=== PATIENT | male | born 1960 | race Caucasian/White ===

== ENCOUNTER 2025-01-09 10:36 | Emergency (ER) | payer BC, SELFPAY ==
[2025-01-09 10:52] VITALS: BP 153/99
[2025-01-09 11:13] LABS: Hematocrit 40.9 % (39.0-52.0); Hemoglobin 12.9 g/dL (13.0-18.0); Mean Corp Hgb Conc. 31.5 g/dL (33.0-37.0); Mean Corpuscular Volume 90.1 fL (80.0-94.0); Nucleated Red Blood Cells % 0 % (-); Platelet Count 285 10^3/uL (130-400); Red Cell Dist. Width 13.3 % (11.5-14.5)
[2025-01-09 11:33] LABS: ALT (SGPT) 39 U/L (0-50); AST (SGOT) 34 U/L (17-59); Albumin 4.4 g/dl (3.5-5.0); Alkaline Phosphatase 159 U/L (38-126); Blood Urea Nitrogen 39 mg/dl (9-20); Calcium 9.5 mg/dl (8.4-10.2); Carbon Dioxide 24 mmol/L (22-30); Chloride 108 mmol/L (98-107); Glucose 121 mg/dl (70-99); Potassium 5.9 mmol/L (3.5-5.1); Sodium 138 mmol/L (135-145); Total Protein 8.1 g/dl (6.3-8.2); eGFR 38.91
[2025-01-09 13:03] VITALS: BMI 23.5
--- NOTE | 2025-01-09 13:04 | ED.GENMED ---
History of Present Illness
General
Chief Complaint: Abnormal Lab Value
Source: patient
Exam Limitations: none
Time Seen by Provider: 01/09/25 13:00
History of Present Illness
History of Present Illness:
64yoM with a history of hypertension and hyperlipidemia presenting for evaluation of an abnormal outpatient lab. Patient was sent for routine blood work yesterday. He was found to have a potassium of 6.6 and was told to go to the ED for
evaluation. Creatinine was 1.91. Patient has not had blood work since 2022 and his creatinine was 1.41 at that time. Patient is completely asymptomatic and states he feels great. He did have some great toe pain earlier this week and took 2 doses
of colchicine with resolution. He denies any vomiting, diarrhea, decreased urination, decreased PO intake. He takes lisinopril 40mg daily for his hypertension. Of note, patient drinks a quart of high pH smart water daily.
Past History
Past History
ED Past Medical History: HTN and Hypercholesterolemia
ED Past Surgical History: None
Social History
Tobacco: Non-smoker
Alcohol: None
Drug: None
Phy Exam
General Physical Exam
General Presentation: well appearing and no apparent distress
General Skin: warm and dry
General Habitus: normal
General Mental: alert
ENT Exam
ENT Exam: normocephalic
Cardiovascular Exam
Cardiovascular Exam: regular rate/rhythm, no edema and no murmur
Pulmonary Exam
Pulmonary Exam: lungs clear, no respiratory distress, no rales, no crackles, no rhonchi and no wheezing
Neurological Exam
Neurological Exam: alert
[place] Coma Scale
Eye Opening: Spontaneous
Verbal Response: Oriented
Motor Response: Obeys Commands
GCS Total Score: 15
Skin Exam
Skin Exam: normal color and warm/dry
Psychiatric Exam
Psychiatric Exam: normal mood/affect
Course
Orders/Labs/Results
Orders:
Orders
01/09/25 11:00
Complete Blood Count/With Diff Urgent
Comprehensive Metabolic Panel Urgent
01/09/25 11:23
Electrocardiogram (*1) Urgent
Reason for Study: Vertigo / Dizzy
EKG- Treatment ONCE
01/09/25 13:33
Urinalysis Reflex To Culture Urgent
Date Specimen was Collected: 01/09/25
Time Specimen was Collected: 13:30
Urine Microscopic Reflex Cult Urgent
01/09/25 13:39
Sodium Zirconium Cyclosilicate [Lokelma] 10 gram PO NOW STA
01/09/25 13:40
0.9% Sodium Chloride 1000 ml [Nss] 1,000 ml IV BOLUS
Abnormal Lab Results
01/09/25 01/09/25
11:00 13:33
RBC 4.54 L 10^6/uL
(4.70-6.10)
Hgb 12.9 L g/dL
(13.0-18.0)
MCHC 31.5 L g/dL
(33.0-37.0)
MPV 10.7 H fL
(7.4-10.4)
Absolute Lymphs (auto) 1.1 L 10^3/uL
(1.2-3.4)
Lymphocytes % 20.3 L %
(20.5-51.1)
Potassium 5.9 H mmol/L
(3.5-5.1)
Chloride 108 H mmol/L
(98-107)
BUN 39 H mg/dl
(9-20)
Creatinine 1.9 H mg/dL
(0.7-1.3)
Glucose 121 H mg/dl
(70-99)
Alkaline Phosphatase 159 H U/L
(38-126)
Ur Occult Blood Reflex 1+ A
(Negative)
Urine Albumin (Reflex) 3+ A
(Neg - Trace)
01/09/25 11:00
01/09/25 11:00
Vital Signs
Initial and Last Documented VS:
Initial Vital Signs
Temp Pulse Resp BP Pulse Ox
98.5 F 98 16 153/99 100
01/09/25 10:52 01/09/25 10:52 01/09/25 10:52 01/09/25 10:52 01/09/25 10:52
Last Documented Vital Signs
Temp Pulse Resp BP Pulse Ox
98.5 F 81 15 127/94 100
01/09/25 10:52 01/09/25 14:15 01/09/25 14:15 01/09/25 14:00 01/09/25 13:05
MDM/Problems Addressed
Differential Diagnosis Includes:
64yoM here for a potassium of 6.6 on routine labs yesterday. Currently asymptomatic. On lisinopril for HTN. Patient well appearing in no distress and exam is reassuring. Differential diagnosis includes: lab error, ZEHRA, medication side effect
Repeat blood work obtained in triage. Potassium is 5.9 today. Creatinine 1.9 (1.91 yesterday). EKG obtained and no peaked T waves noted. I discussed case with health professional reserve operator, Dr. Flores, who recommends giving Lokelma x 3 days and stopping
lisinopril. Patient should have repeat blood work on Sunday and have close PCP f/u. Patient in agreement with plan and he is eager to be discharged. He was given 1L NS during ED stay. ED return precautions reviewed and he was discharged in stable
condition.
*Pulse Oximetry
SaO2: 100
Oxygen Mode of Delivery: Room air
Patient hypoxic: no
*EKG
Interpreted by ED Provider?: Yes
EKG Intrepretation Date: 01/09/25
Heart Rate: 96
Rate: normal
Rhythm: sinus
[place]: normal axis
Interval: normal interval
QRS Pattern: normal QRS
Ischemia: no ischemia
*Critical Care Note
Total Time (30-74mins, 75-104mins- exclusive of procedures): Not Applicable
ED Attending Note
-
Portions of this chart may have been created with voice recognition software.� Occasional wrong word or��sound alike� substitutions may have occurred due to the inherent limitations of voice recognition software.
Discharge Plan
Departure
Patient Disposition: Home (Routine Discharge)
Date of Disposition: 01/09/25
Time of Disposition: 14:20
Patient with high blood pressure during this ER visit?: No
Discharge Problem:
Hyperkalemia
Instructions: Hyperkalemia (DC)
Prescriptions:
New
sodium zirconium cyclosilicate 10 gram powder in packet
10 g PO DAILY 2 Days Qty: 2 0RF
No Action
atorvastatin 20 MG tablet
20 mg PO QPM
amlodipine 10 MG tablet
10 mg PO DAILY
lisinopril 40 MG tablet
40 mg PO DAILY
Referrals:
Pili Connolly CRNP [Family Provider, Family Practice]
Activity Restrictions/Additional Instructions:
Stop taking lisinopril. Take Lokelma as prescribed. You will need 1 dose on Sunday and 1 dose on Sunday. You should have repeat blood work done on Sunday to monitor your potassium levels.
Please follow-up with your family doctor. Return to the ER with any new or worsening symptoms.
Interventions
Interventions:
*Risk Screen - Suicide Last Done: 01/09/25 10:53
*General Assessment Last Done: 01/09/25 13:03
*Neglect/Abuse Screening Last Done: 01/09/25 10:53
*ED- Fall Risk Assessment Last Done: 01/09/25 13:03
*ED COVID-19 Vaccine History Last Done: 01/09/25 13:03
*ED Influenza Vaccine History Last Done: 01/09/25 13:03
Discharge Date and Time
Print Language: SPANISH
[2025-01-09 13:33] VITALS: BP 145/96
[2025-01-09] MEDS: LOKELMA 10 GRAM PO (13:55)
[2025-01-09 13:56] LABS: Urine Character Clear (Clear)
[2025-01-09 14:00] VITALS: BP 127/94
[2025-01-09] MEDS: NSS 1000 IV (14:01)
[2025-01-09 14:13] LABS: Urine Red Blood Cell 0-2 /HPF (0-2); Urine Squamous Cell 0-2 /LPF (Few); Urine Urothelial Cell 0-2 /LPF (FEW); Urine White Cell 0-2 /HPF (0-5)
== END 2025-01-09 14:53 | disposition home or self-care (01) ==
LOC: EMR 10:36
PROVIDERS: Emergency Medicine; Physician Assistant; EMERGENCY PHYSICIAN Student in an Organized Health Care Education/Training Program; FAMILY PHYSICIAN Nurse Practitioner Family
DX: E87.5 Hyperkalemia (principal); I10 Essential (primary) hypertension; E78.00 Pure hypercholesterolemia, unspecified
CPT/HCPCS: 99284; 96360; 80053; 81003; 81015; 85025; 93005